=== PATIENT | female | born 1990 | race Caucasian/White ===

== ENCOUNTER 2016-12-02 10:11 | Emergency (ER) | payer OTHER ==
[~2016-12-02] VITALS: Ht 162.6 cm; Wt 81.0 kg
[~2016-12-02 10:11] MED LIST: CRYS28TA PO; NORG1TAB29 PO
[2016-12-02 10:26] VITALS: BP 143/92; PULSE 106; RESP 16; TEMP 99; O2SAT 98
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
[2016-12-02] MEDS ORDERED: ROBA750T PO (11:58)
[2016-12-02] MEDS ORDERED: IBUP-232 PO (11:58)
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
== END 2016-12-02 12:51 | disposition home or self-care (01) ==
LOC: PHED 10:11 → PHEFT 12:51
DX: S16.1XXA Strain of muscle, fascia and tendon at neck level, initial encounter (principal); V49.9XXA Car occupant (driver) (passenger) injured in unspecified traffic accident, initial encounter; Y92.410 Unspecified street and highway as the place of occurrence of the external cause
CPT/HCPCS: 72040; 99283